=== PATIENT | female | born 1950 | race African-American/Black ===

== ENCOUNTER → 2017-10-30 | Outpatient (CLI) | payer MEDICARE, MEDICAID ==
[~2017-10-30] MED LIST: BARIUM SULFATE 450ML ORAL SUSP ONE
== END | disposition home or self-care (01) ==
LOC: CT 08:13
PROVIDERS: ATTEND Surgery
DX: K43.9 Ventral hernia without obstruction or gangrene (principal); K57.30 Diverticulosis of large intestine without perforation or abscess without bleeding; N28.1 Cyst of kidney, acquired; L02.211 Cutaneous abscess of abdominal wall; M51.36 Other intervertebral disc degeneration, lumbar region; K56.41 Fecal impaction
CPT/HCPCS: 74176